=== PATIENT | female | born 1940 | race Hispanic/Latino ===

== ENCOUNTER 2016-08-15 07:33 | Emergency (ER) | payer MEDICARE ==
[2016-08-15 08:33] LABS: Anion Gap 19 mmol/L; Blood Urea Nitrogen 10 mg/dL (7-17); Calcium 9.1 mg/dL (8.4-10.2); Carbon Dioxide 25 mmol/L (22-30); Chloride 103.3 mmol/L (98-107); Glucose 94 mg/dL (65-100); Potassium 3.9 mmol/L (3.6-5.0); Sodium 143 mmol/L (137-145)
[2016-08-15 08:49] LABS: Basophils % (Auto) 0.2 % (0.0-1.8); Eosinophils % (Auto) 0.4 % (0.0-4.3); Hematocrit 41.4 % (30.3-42.9); Hemoglobin 13.7 gm/dl (10.1-14.3); Mean Corpuscular HGB Conc 33 % (30-34); Mean Corpuscular Hemoglobin 29 pg (28-32); Mean Corpuscular Volume 87 fl (79-97); Platelet Count 309 K/mm3 (140-440); Red Blood Count 4.78 M/mm3 (3.65-5.03); Red Cell Distribution Width 14.5 % (13.2-15.2); White Blood Count 9.9 K/mm3 (4.5-11.0)
--- NOTE | 2016-08-15 08:50 | Cat Scan Report ---
CT HEAD WITHOUT CONTRAST: HISTORY: Head injury after fall. TECHNIQUE: Sequential CT images without contrast. FINDINGS: Images obtained show bilateral prominence of the sulci and ventricles. There are no abnormal intra- or extra-axial blood or fluid collections. There are no focal masses or evidence of mass effect. The saldivar white matter differentiation appears within normal limits. Regions of periventricular decreased attenuation are consistent with microangiopathic ischemic disease. The posterior fossa structures including the fourth ventricle, cerebellum, and brainstem appear normal. IMPRESSION: Evidence of atrophy and microangiopathic ischemic disease. No acute intracranial process noted.
--- NOTE | 2016-08-15 08:51 | Cat Scan Report ---
CT SCAN OF THE CERVICAL SPINE: HISTORY: Injury after fall. TECHNIQUE: Contiguous 1.25 mm axial images of the cervical spine were obtained. Sagittal and coronal reformatted images. FINDINGS: There is normal alignment of the cervical spine. The body, pedicles and posterior ligaments appear normal. No evidence of fracture or subluxation is seen. Mild spondylosis is noted. The spinal canal appears normal. The prevertebral soft tissues appear normal. IMPRESSION: No evidence for acute injury to the cervical spine.
[2016-08-15] MEDS ORDERED: BOOSTRIX IM ONE (09:47)
[2016-08-15] MEDS ORDERED: XYLOCAINE 1%/ EPI 1:100,000 INFILTRATI ONE (09:48)
[2016-08-15] MEDS ORDERED: NACL 0.9% 500 ML IR ONE (09:48)
--- NOTE | 2016-08-15 09:54 | Emergency Department Report ---
HPI - General Chief Complaint: Fall Time Seen by Provider: 08/15/16 09:38 - HPI HPI: Room 9 The patient is a 76-year-old female presenting with a chief complaint of fall. The patient is a resident at an assisted living facility and family was contacted at that the patient had fallen. There was no reported loss of consciousness staff states they were speaking with the patient immediately after the fall. Patient has a history of dementia and does not provide history with the patient reportedly has a laceration to the back of her head Location: Back of head Duration: [see above] Quality: Unknown Severity: Moderate Modifying factors: [see above] Context: [see above] Mode of transportation: [not driving] ED Past Medical Hx - Past Medical History Previous Medical History?: Yes Hx Hypertension: Yes Additional medical history: high cholesterol, dementia, colon CA (status post resection and chemotherapy approximately 2006) - Surgical History Past Surgical History?: Yes Hx Cholecystectomy: Yes - Family History Family history: no significant - Social History Smoking Status: Never Smoker Substance Use Type: None - Medications Home Medications: Home Medications Medication Instructions Recorded Confirmed Last Taken Type traMADol [Ultram] 50 mg PO Q6HR PRN #14 tablet 08/15/16 Unknown Rx ED Review of Systems ROS: Stated complaint: FATIGUE Other details as noted in HPI Comment: Unobtainable due to pts medical conditions Physical Exam - Physical Exam Vital Signs: Vital Signs 08/15/16 07:53 Temperature 98.2 F Pulse Rate 69 Respiratory 14 Rate Blood Pressure 125/72 O2 Sat by Pulse 100 Oximetry Physical Exam: GENERAL: The patient is well-developed well-nourished elderly female lying on stretcher pleasantly demented not appearing to be in acute distress. [] HEENT: Normocephalic. Laceration to the occiput Patient has moist mucous membranes. NECK: Supple. Trachea midline. No axial step offs CHEST/LUNGS: Clear to auscultation. There is no respiratory distress noted. HEART/CARDIOVASCULAR: Regular. There is no tachycardia. There is no gallop rub or murmur. ABDOMEN: Abdomen is soft, nontender. Patient has normal bowel sounds. There is no abdominal distention. SKIN: There is no rash. There is no edema. There is no diaphoresis. NEURO: The patient is awake and alert but appears pleasantly demented. The patient is cooperative. The patient has normal speech MUSCULOSKELETAL: There is no axial tenderness to palpation or step offs. There is no tenderness to palpation of bilateral hips ED Course Vital Signs 08/15/16 07:53 Temperature 98.2 F Pulse Rate 69 Respiratory 14 Rate Blood Pressure 125/72 O2 Sat by Pulse 100 Oximetry ED Medical Decision Making - Lab Data Result diagrams: 08/15/16 08:04 08/15/16 08:04 Laboratory Tests 08/15/16 08/15/16 08/15/16 08:04 08:04 08:04 WBC 9.9 RBC 4.78 Hgb 13.7 Hct 41.4 MCV 87 MCH 29 MCHC 33 RDW 14.5 Plt Count 309 Lymph % (Auto) 9.5 L [place] % (Auto) 4.5 Eos % (Auto) 0.4 Baso % (Auto) 0.2 Lymph # 0.9 L [place] # 0.4 Eos # 0.0 Baso # 0.0 Seg Neutrophils % 85.4 H Seg Neutrophils # 8.4 H Sodium 143 Potassium 3.9 Chloride 103.3 Carbon Dioxide 25 Anion Gap 19 BUN 10 Creatinine 0.5 L Estimated GFR > 60 BUN/Creatinine Ratio 20.00 Glucose 94 Calcium 9.1 Total Creatine Kinase 37 CK-MB (CK-2) 1.5 CK-MB (CK-2) Rel Index 4.0 Troponin T 08/15/16 08:04 WBC RBC Hgb Hct MCV MCH MCHC RDW Plt Count Lymph % (Auto) [place] % (Auto) Eos % (Auto) Baso % (Auto) Lymph # [place] # Eos # Baso # Seg Neutrophils % Seg Neutrophils # Sodium Potassium Chloride Carbon Dioxide Anion Gap BUN Creatinine Estimated GFR BUN/Creatinine Ratio Glucose Calcium Total Creatine Kinase CK-MB (CK-2) CK-MB (CK-2) Rel Index Troponin T < 0.010 - EKG Data -: EKG Interpreted by Ny EKG shows normal: sinus rhythm Rate: normal - EKG Data When compared to previous EKG there are: previous EKG unavailable Interpretation: other (left bundle branch block) - Radiology Data Radiology results: report reviewed (CT head, CT cervical spine), image reviewed (CT head, CT cervical spine) CT cervical spine (read by radiologist)-no evidence for acute injury to the cervical spine CT head (read by radiologist)-evidence of atrophy and microangiopathic ischemic disease. No acute intracranial process noted. - Differential Diagnosis closed head injury, scalp laceration, ICH, cervical fracture Critical care attestation.: If time is entered above; I have spent that time in minutes in the direct care of this critically ill patient, excluding procedure time. ED Disposition Clinical Impression: Closed head injury, Scalp laceration Disposition: DISCHARGED TO HOME OR SELFCARE Is pt being admited?: No Does the pt Need Aspirin: No Condition: Stable Instructions: Laceration (ED), Staple Care (ED) Additional Instructions: Return to the emergency department immediately should you develop worsening symptoms, fever, inability to tolerate food or liquid or any other concerns. Prescriptions: traMADol [Ultram] 50 mg PO Q6HR PRN #14 tablet PRN Reason: Pain Referrals: PRIMARY CARE,MD [Primary Care Provider] - 3-5 Days Time of Disposition: 10:50 Blank Doc - Documentation Documentation: Laceration note Consent was obtained verbally The wound was anesthetized with lidocaine 1% with epinephrine approximately 7 mL 's Wound was copiously irrigated with normal saline Site was prepped with Betadine Three sanjeev were placed The wound had [good] approximation The wound had [good] hemostasis Antibiotic ointment was applied and the wound was dressed Suture removal discussed with patient and informed the sutures need to be removed in 7 days Laceration type: Simple There were no complications
[2016-08-15 10:08] LABS: Creatine Kinase MB 1.5 ng/mL (0.0-4.0)
[2016-08-15] MEDS ORDERED: HYDROGEN PEROXIDE TP ONE (10:30)
[2016-08-15] MEDS ORDERED: HYDROGEN PEROXIDE ONE (10:40)
[2016-08-15] MEDS ORDERED: TRIPLE ANTIBIOTIC TP ONE (10:49)
[2016-08-15 13:34] VITALS: BP 143/77
== END 2016-08-15 13:32 | disposition home or self-care (01) ==
LOC: ED 07:33
DX: S01.01XA Laceration without foreign body of scalp, initial encounter (principal); S09.90XA Unspecified injury of head, initial encounter; I10 Essential (primary) hypertension; E78.00 Pure hypercholesterolemia, unspecified; F03.90 Unspecified dementia, unspecified severity, without behavioral disturbance, psychotic disturbance, mood disturbance, and anxiety; W19.XXXA Unspecified fall, initial encounter; Y93.9 Activity, unspecified; Y92.89 Other specified places as the place of occurrence of the external cause; Y99.9 Unspecified external cause status
CPT/HCPCS: 36415; 70450; 72125; 80048; 82550; 82553; 84484; 85025; 90471; 90715; 93005; 93010; A6250

== ENCOUNTER 2016-12-18 19:19 | Emergency (ER) | payer MEDICARE ==
--- NOTE | 2016-12-18 23:52 | Emergency Department Report ---
ED Upper Extremity Inj HPI - General Chief Complaint: Extremity Injury, Upper Stated Complaint: LEFT WRIST INJURY Time Seen by Provider: 12/18/16 23:34 Source: family Mode of arrival: Wheelchair Limitations: Other - History of Present Illness Initial Comments: Patient is a 76-year-old with a history of dementia presenting with a left arm injury. As per daughter at bedside patient was walking at a [facility] when she tripped over a step and fell out on all shots chain injuring her left wrist. Patient is found to have a Colles' fracture and sent to the ER for evaluation. Patient is a poor historian but is able to follow commands and reports pain in the left wrist. Daughter also points out at bedside a deformity in the left clavicle. However patient has no complaints of pain in the collarbone. Otherwise no fevers, chills, headaches, head trauma, LOC, chest pain, shortness of breath, abdominal pain, lower extremity pain, travel, or sick contacts. - Related Data Previous Rx's Medication Instructions Recorded Last Taken Type traMADol [Ultram 50 MG tab] 50 mg PO Q6HR PRN #14 tablet 12/19/16 Unknown Rx Allergies Allergy/AdvReac Type Severity Reaction Status Date / Time Penicillins Allergy Unknown Verified 08/15/16 09:26 ED Review of Systems ROS: Stated complaint: LEFT WRIST INJURY Other details as noted in HPI Comment: Unobtainable due to pts medical conditions ED Past Medical Hx - Past Medical History Hx Hypertension: Yes Additional medical history: high cholesterol, dementia, colon CA (status post resection and chemotherapy approximately 2006) - Surgical History Past Surgical History?: Yes Hx Cholecystectomy: No Additional Surgical History: colon resection - Social History Smoking Status: Never Smoker - Medications Home Medications: Home Medications Medication Instructions Recorded Confirmed Last Taken Type traMADol [Ultram 50 MG tab] 50 mg PO Q6HR PRN #14 tablet 12/19/16 Unknown Rx ED Physical Exam - General Limitations: Other (dementia) General appearance: alert, in no apparent distress - Head Head exam: Present: atraumatic, normocephalic - Eye Eye exam: Present: normal appearance - ENT ENT exam: Present: mucous membranes moist - Neck Neck exam: Present: normal inspection, full ROM, other (bony prominence over medial aspect of L clavicle, no pain illicited, no crepitus, no swelling). Absent: tenderness, lymphadenopathy - Respiratory Respiratory exam: Present: normal lung sounds bilaterally. Absent: respiratory distress, wheezes, rales, rhonchi, stridor - Cardiovascular Cardiovascular Exam: Present: regular rate, normal rhythm. Absent: systolic murmur, diastolic murmur, rubs, gallop - GI/Abdominal GI/Abdominal exam: Present: soft, normal bowel sounds - Extremities Exam Extremities exam: Present: normal inspection, tenderness (L wrist), normal capillary refill, joint swelling (L wrist), other (ecchymoses of L forearm, no snuff box tenderness) - Back Exam Back exam: Present: normal inspection - Neurological Exam Neurological exam: Present: alert, oriented X3, CN II-XII intact, reflexes normal, other (Neurovascularly intact, sensation intact, flexion and extension intact). Absent: motor sensory deficit - Psychiatric Psychiatric exam: Present: normal affect, normal mood, other (dementia) - Skin Skin exam: Present: warm, dry, intact, normal color. Absent: rash ED Course Vital Signs 12/18/16 21:09 Temperature 99.0 F Pulse Rate 81 Respiratory 18 Rate Blood Pressure 151/81 O2 Sat by Pulse 97 Oximetry - Orthopedic Splinting/Casting Injury #1 Side: left Upper Extremity Injury Location: wrist Upper Extremity Immobilizer: sugartong splint Additional Comments: Neurovascularly intact ED Medical Decision Making - Radiology Data Radiology results: report reviewed CXR: no clavicular fx seen, some tissue density of the L paratracheal region L wrist/forearm: (+)Colles fracture, non displace, mild radial impaction Critical care attestation.: If time is entered above; I have spent that time in minutes in the direct care of this critically ill patient, excluding procedure time. ED Disposition Clinical Impression: Fall, Wrist fracture Disposition: DISCHARGED TO HOME OR SELFCARE Is pt being admited?: No Condition: Stable Instructions: Wrist Fracture in Adults (ED), Fall Prevention for Older Adults ( ED) Prescriptions: traMADol [Ultram 50 MG tab] 50 mg PO Q6HR PRN #14 tablet PRN Reason: Pain Referrals: PRIMARY CARE,MD [Primary Care Provider] - 3-5 Days
--- NOTE | 2016-12-18 23:54 | XRay Report ---
FINAL REPORT PROCEDURE: XR FOREARM LT TECHNIQUE: LEFT forearm radiographs, AP and lateral views. CPT 61690 HISTORY: injury COMPARISON: No prior studies are available for comparison. FINDINGS: Fracture (s) and/or Dislocation(s): There is a slightly impacted fracture of the distal radial metaphysis. There is a fracture of the ulnar styloid process and distal ulna. The carpal bones and metacarpal bones are intact.. Joint space(s): There is degenerative arthrosis of the wrist joint.. Soft tissues: There is soft tissue swelling of the wrist and hand.. Bone mineralization: There is generalized osteopenia.. Foreign bodies: None . IMPRESSION: Fractures of the distal radius and ulna as described.
--- NOTE | 2016-12-19 00:09 | XRay Report ---
FINAL REPORT PROCEDURE: XR HAND 2V LT TECHNIQUE: LEFT hand radiographs, AP and lateral views. CPT 46667-RF HISTORY: fall COMPARISON: No prior studies are available for comparison. FINDINGS: Fracture (s) and/or Dislocation(s): There are nondisplaced fractures of the distal radius and the ulnar styloid process. There is no significant bony deformity. There is slight impaction of the radial fracture. The carpal bones and metacarpal bones are intact.. Alignment: Normal . Joint space(s): There is degenerative arthrosis of the radiocarpal joint, the 1st carpal metacarpal joint and the metacarpophalangeal joints and interphalangeal joints. There is no dislocation.. Soft tissues: There is generalized soft tissue swelling.. Bone mineralization: There is generalized osteopenia.. Foreign bodies: None . IMPRESSION: Fractures of the distal radius and ulna..
--- NOTE | 2016-12-19 00:29 | XRay Report ---
FINAL REPORT PROCEDURE: XR CHEST 1V AP TECHNIQUE: Chest radiograph anteroposterior view. CPT 39965 HISTORY: r/o clavicular fx COMPARISON: No prior studies are available for comparison. FINDINGS: Heart: Heart is slightly enlarged. There is right paratracheal soft tissue thickening. Mass or adenopathy cannot be excluded. Mediastinum/Vessels: As above. There is calcified plaque in the thoracic aorta.. Lungs/Pleural space: Lungs are clear and expanded. There are no infiltrates, effusions or pneumothoraces.. Bony thorax: No acute osseous abnormality. No clavicle fracture is seen although the right clavicle is obscured by overlying demographics. Life support devices: None. IMPRESSION: Heart is slightly enlarged. There is right paratracheal soft tissue thickening. Mass or adenopathy cannot be excluded. There is calcified plaque in the thoracic aorta.. Lungs are clear and expanded. There are no infiltrates, effusions or pneumothoraces.. No clavicle fracture is seen although the right clavicle is obscured by overlying demographics.
[2016-12-19 01:14] VITALS: BP 142/89
== END 2016-12-19 01:37 | disposition home or self-care (01) ==
LOC: ED 19:19
DX: S52.532A Colles' fracture of left radius, initial encounter for closed fracture (principal); E78.00 Pure hypercholesterolemia, unspecified; Z88.0 Allergy status to penicillin; W01.0XXA Fall on same level from slipping, tripping and stumbling without subsequent striking against object, initial encounter; Y93.89 Activity, other specified; Y99.8 Other external cause status; Y92.89 Other specified places as the place of occurrence of the external cause
CPT/HCPCS: 71010

== ENCOUNTER 2018-04-08 18:57 | Emergency (ER) | payer MEDICARE ==
--- NOTE | 2018-04-08 21:03 | Emergency Department Report ---
ED Shortness of Breath HPI - General Chief Complaint: Dyspnea/Respdistress Stated Complaint: DIFFICULTY BREATHING Time Seen by Provider: 04/08/18 20:51 Source: EMS Mode of arrival: Stretcher Limitations: No Limitations - History of Present Illness Initial Comments: Patient is a 77-year-old female senior care patient with history of advanced dementia. Patient brought to the ER by ambulance for evaluation of shortness of breath. Patient is unable to give history secondary to her advanced dementia. Most of the history is from patient and daughter stated that she was called by the senior care nurse stating that when they are moving how she started having some shortness of breath and that completely resolved now and he sent here for evaluation. Daughter denied any recent fever, cough or chest pain. She stated that she was recently diagnosed with a bladder infection and she finished ciprofloxacin for 7 days. MD Complaint: shortness of breath - Related Data Previous Rx's Medication Instructions Recorded Last Taken Type traMADol [Ultram 50 MG tab] 50 mg PO Q6HR PRN #14 tablet 12/19/16 Unknown Rx Allergies Allergy/AdvReac Type Severity Reaction Status Date / Time Penicillins Allergy Unknown Verified 04/08/18 20:13 ED Review of Systems ROS: Stated complaint: DIFFICULTY BREATHING Other details as noted in HPI Comment: All other systems reviewed and negative Constitutional: denies: chills, fever Respiratory: denies: cough, orthopnea, shortness of breath, SOB with exertion, SOB at rest, wheezing Cardiovascular: denies: chest pain, palpitations, dyspnea on exertion, orthopnea Gastrointestinal: denies: abdominal pain, nausea, vomiting ED Past Medical Hx - Past Medical History Hx Hypertension: Yes Additional medical history: high cholesterol, dementia, colon CA (status post resection and chemotherapy approximately 2006) - Surgical History Hx Cholecystectomy: No Additional Surgical History: colon resection - Social History Smoking Status: Unknown if ever smoked Substance Use Type: None - Medications Home Medications: Home Medications Medication Instructions Recorded Confirmed Last Taken Type traMADol [Ultram 50 MG tab] 50 mg PO Q6HR PRN #14 tablet 12/19/16 Unknown Rx ED Physical Exam - General Limitations: No Limitations General appearance: alert, in no apparent distress - Head Head exam: Present: atraumatic, normocephalic, normal inspection - Eye Eye exam: Present: normal appearance - ENT ENT exam: Present: normal exam, normal orophraynx, mucous membranes moist - Neck Neck exam: Present: normal inspection, full ROM. Absent: tenderness, meningismus - Respiratory Respiratory exam: Present: normal lung sounds bilaterally. Absent: respiratory distress, wheezes, rales, rhonchi, chest wall tenderness, accessory muscle use, decreased breath sounds, prolonged expiratory - Cardiovascular Cardiovascular Exam: Present: regular rate, normal rhythm, normal heart sounds - GI/Abdominal GI/Abdominal exam: Present: soft, normal bowel sounds. Absent: distended, tenderness, guarding, rebound, rigid, organomegaly, mass, bruit, pulsatile mass , hernia - Extremities Exam Extremities exam: Present: normal inspection, full ROM, normal capillary refill. Absent: pedal edema, calf tenderness - Back Exam Back exam: Present: normal inspection, full ROM - Neurological Exam Neurological exam: Present: alert, oriented X3, CN II-XII intact, normal gait, reflexes normal - Skin Skin exam: Present: warm, intact, normal color ED Course Vital Signs 04/08/18 04/08/18 04/08/18 20:09 20:16 20:30 Temperature 98.5 F Pulse Rate 84 77 76 Respiratory 16 17 19 Rate Blood Pressure 174/92 174/92 174/92 O2 Sat by Pulse 98 98 82 L Oximetry 04/08/18 04/08/18 04/08/18 20:46 21:00 21:16 Temperature Pulse Rate 74 87 85 Respiratory 16 20 19 Rate Blood Pressure 153/89 153/89 153/89 O2 Sat by Pulse Oximetry 04/08/18 04/08/18 04/08/18 21:30 21:46 22:00 Temperature Pulse Rate 70 66 78 Respiratory 21 18 16 Rate Blood Pressure 153/89 153/89 153/89 O2 Sat by Pulse Oximetry 04/08/18 04/08/18 04/08/18 22:16 22:30 22:45 Temperature Pulse Rate 72 73 73 Respiratory 19 19 19 Rate Blood Pressure 153/89 153/89 153/89 O2 Sat by Pulse Oximetry 04/08/18 04/08/18 04/08/18 23:00 23:16 23:30 Temperature Pulse Rate 78 71 68 Respiratory 19 19 21 Rate Blood Pressure 153/89 153/89 153/89 O2 Sat by Pulse Oximetry 04/08/18 04/09/18 04/09/18 23:34 00:00 00:30 Temperature Pulse Rate 68 98 H 75 Respiratory 19 18 20 Rate Blood Pressure 153/89 153/89 153/89 O2 Sat by Pulse 94 Oximetry 04/09/18 04/09/18 04/09/18 01:00 01:34 02:00 Temperature Pulse Rate 84 82 72 Respiratory 20 17 21 Rate Blood Pressure 153/89 153/89 148/88 O2 Sat by Pulse 95 95 Oximetry 04/09/18 04/09/18 04/09/18 02:30 03:00 04:53 Temperature 98.3 F Pulse Rate 78 70 Respiratory 16 15 Rate Blood Pressure 139/81 133/85 O2 Sat by Pulse 96 96 Oximetry ED Medical Decision Making - Lab Data Result diagrams: 04/08/18 22:32 04/08/18 22:32 - Radiology Data Radiology results: report reviewed Referring Physician: ANGELITA HEALY Patient Name: DOMINGO HEREDIA Date of : 1940 Sex: Female Report Date: 2018-04-08 Report Status: [place] [address] XRay Report Signed Patient: DOMINGO HEREDIA MR#: [id number] : 1940 Acct:[id number] Age/Sex: 77 / F ADM Date: 04/08/18 Loc: ED Attending Dr: Ordering Physician: ANGELITA HEALY Date of Service: 04/08/18 Procedure(s): XR chest 1V ap Accession Number(s): [id number] cc: ANGELITA HEALY Fluoro Time In Minutes: FINAL REPORT PROCEDURE: XR CHEST 1V AP TECHNIQUE: Chest radiograph anteroposterior view. CPT 60537 HISTORY: Shortness of breath COMPARISON: 12/18/2016 FINDINGS: Limited study due to suboptimal inspiration. Heart: Normal. Mediastinum/Vessels: Widening of the superior mediastinum most likely secondary to tortuous vasculature is again noted without interval change.. Lungs/Pleural space: Normal. Bony thorax: No acute osseous abnormality. Life support devices: None. IMPRESSION: No obvious acute pulmonary process No interval change. Transcribed By: UBC Dictated By: EMILY HUNTER Electronically Authenticated By: EMILY HUNTER Signed Date/Time: 04/08/182124 Referring Physician: ANGELITA HEALY Patient Name: DOMINGO HEREDIA Date of : 1940 Sex: Female Report Date: 2018-04-09 Report Status: Finalized Findings [facility] [address] [place] [address] Cat Scan Report Signed Patient: DOMINGO HEREDIA MR#: [id number] : 1940 Acct:[id number] Age/Sex: 77 / F ADM Date: 04/08/18 Loc: ED Attending Dr: Ordering Physician: ANGELITA HEALY Date of Service: 04/09/18 Procedure(s): CT angio chest Accession Number(s): [id number] cc: ANGELITA HEALY FINAL REPORT EXAM: CT ANGIO CHEST HISTORY: shortness of breath TECHNIQUE: A CT angiogram was performed following the intravenous injection of 100 cc of Omnipaque 350. MIP rotational, sagittal, and coronal reconstructions were reviewed. FINDINGS: There is no evidence of pulmonary embolus or aortic dissection. The thoracic aorta is normal in caliber. The heart size is normal. Pericardial fluid is not seen. There is no evidence of adenopathy. The lungs are not congested. The lungs reveal minimal dependent atelectasis in both lower lobes. Pleural fluid is not seen. In the upper abdomen the adrenal glands are not enlarged. 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 At the thoracic inlet there are multiple low-attenuation foci in both thyroid lobes. IMPRESSION: No evidence of pulmonary embolus, aortic dissection, or vascular congestion. Minimal dependent atelectatic changes in both lower lobes. No acute infiltrates or effusions. Low-attenuation foci in both thyroid lobes. Further evaluation is recommended with outpatient thyroid sonography. Transcribed By: RB Dictated By: PADMINI PINON MD Electronically Authenticated By: PADMINI IPNON MD Signed Date/Time: 04/09/18438 DD/ 8 TD/TT: 04/09/18438 DD/ 24 TD/TT: 04/08/182124 Critical care attestation.: If time is entered above; I have spent that time in minutes in the direct care of this critically ill patient, excluding procedure time. ED Disposition Clinical Impression: Shortness of breath Disposition: DC/TX-70 ANOTHER TYPE [facility]THCARE Is pt being admited?: No Condition: Stable Instructions: Dyspnea (ED) Referrals: PRIMARY CARE, [Primary Care Provider] - 3-5 Days
--- NOTE | 2018-04-08 21:26 | XRay Report ---
FINAL REPORT PROCEDURE: XR CHEST 1V AP TECHNIQUE: Chest radiograph anteroposterior view. CPT 80926 HISTORY: Shortness of breath COMPARISON: 12/18/2016 FINDINGS: Limited study due to suboptimal inspiration. Heart: Normal. Mediastinum/Vessels: Widening of the superior mediastinum most likely secondary to tortuous vasculature is again noted without interval change.. Lungs/Pleural space: Normal. Bony thorax: No acute osseous abnormality. Life support devices: None. IMPRESSION: No obvious acute pulmonary process No interval change.
[2018-04-08 22:56] LABS: Basophils # (Auto) 0.1 K/mm3 (0.0-0.1); Basophils % (Auto) 1.1 % (0.0-1.8); Eosinophils # (Auto) 0.2 K/mm3 (0.0-0.4); Eosinophils % (Auto) 2.6 % (0.0-4.3); Hematocrit 40.7 % (30.3-42.9); Hemoglobin 13.9 gm/dl (10.1-14.3); Lymphocytes # (Auto) 2.2 K/mm3 (1.2-5.4); Lymphocytes % (Auto) 23.7 % (13.4-35.0); Mean Corpuscular HGB Conc 34 % (30-34); Mean Corpuscular Hemoglobin 30 pg (28-32); Mean Corpuscular Volume 88 fl (79-97); Monocytes # (Auto) 0.6 K/mm3 (0.0-0.8); Monocytes % (Auto) 6.8 % (0.0-7.3); Platelet Count 314 K/mm3 (140-440); Red Blood Count 4.63 M/mm3 (3.65-5.03); Red Cell Distribution Width 13.2 % (13.2-15.2)
[2018-04-08 23:09] LABS: INR 0.98 (0.87-1.13)
[2018-04-08 23:10] LABS: Partial Thromboplastin Time 29.9 Sec. (24.2-36.6)
[2018-04-08 23:14] LABS: BUN/Creatinine Ratio 38; Blood Urea Nitrogen 15 mg/dL (7-17); Calcium 9.1 mg/dL (8.4-10.2); Hemolysis Index 23
[2018-04-08 23:16] LABS: Alanine Aminotransferase 13 units/L (7-56)
[2018-04-08 23:17] LABS: Bilirubin,Direct < 0.2 mg/dL (0-0.2)
[2018-04-09 02:08] LABS: Bilirubin,Urine NEG (Negative); Blood,Urine NEG (Negative); Color,Urine Yellow (Yellow); Mucus,Urine FEW /HPF; Protein,Urine <15 mg/dL mg/dL (Negative); Urobilinogen,Urine < 2.0 mg/dL (<2.0)
[2018-04-09 03:23] VITALS: BP 133/85
--- NOTE | 2018-04-09 04:39 | Cat Scan Report ---
FINAL REPORT EXAM: CT ANGIO CHEST HISTORY: shortness of breath TECHNIQUE: A CT angiogram was performed following the intravenous injection of 100 cc of Omnipaque 350. MIP rotational, sagittal, and coronal reconstructions were reviewed. FINDINGS: There is no evidence of pulmonary embolus or aortic dissection. The thoracic aorta is normal in caliber. The heart size is normal. Pericardial fluid is not seen. There is no evidence of adenopathy. The lungs are not congested. The lungs reveal minimal dependent atelectasis in both lower lobes. Pleural fluid is not seen. In the upper abdomen the adrenal glands are not enlarged. 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 At the thoracic inlet there are multiple low-attenuation foci in both thyroid lobes. IMPRESSION: No evidence of pulmonary embolus, aortic dissection, or vascular congestion. Minimal dependent atelectatic changes in both lower lobes. No acute infiltrates or effusions. Low-attenuation foci in both thyroid lobes. Further evaluation is recommended with outpatient thyroid sonography.
== END 2018-04-09 05:45 | disposition other institution (70) ==
LOC: ED 18:57
DX: R06.02 Shortness of breath (principal); I10 Essential (primary) hypertension; E78.00 Pure hypercholesterolemia, unspecified; Z88.0 Allergy status to penicillin
CPT/HCPCS: 36415; 71045; 71275; 80048; 80074; 81001; 83880; 84484; 85025; 85379; 85610; 85730; 99285; Q9967